=== PATIENT | male | born 1960 ===

== ENCOUNTER 2016-12-30 12:46 | Day surgery (SDC) | payer OTHER ==
[2016-12-23 06:44] VITALS: BMI 37.6
[2016-12-30] MEDS ORDERED: Propofol 10 mg/ml Inj (20 ML) ONE ×2 (14:56→15:17)
[2016-12-30] MEDS ORDERED: Lidocaine 1% Inj (20ml) ONE (14:56)
[2016-12-30] MEDS ORDERED: Sodium Chloride 0.9% 1,000 ML IV SCH (16:30)
[2016-12-30 16:33] VITALS: PULSE 77; RESP 20; TEMP 98.1; O2SAT 96
[2016-12-30 17:00] VITALS: BP 124/70
== END 2016-12-30 16:59 | disposition home or self-care (01) ==
LOC: ENDO 12:46
PROVIDERS: ATTEND Internal Medicine
DX: Z12.11 Encounter for screening for malignant neoplasm of colon (principal); D12.2 Benign neoplasm of ascending colon; D12.4 Benign neoplasm of descending colon; D12.3 Benign neoplasm of transverse colon; K64.8 Other hemorrhoids
CPT/HCPCS: 45380; 45381; 45385; 88305; J2704; J7040 ×2

== ENCOUNTER 2018-06-08 06:58 | Outpatient (CLI) | payer OTHER | END 2018-06-08 06:59 | disposition home or self-care (01) | LOC: LAB 06:58 ==